=== PATIENT | female | born 1955 | race Caucasian/White ===

== ENCOUNTER 2024-07-12 12:52 | Outpatient (CLI) | payer MEDICARE | END 2024-07-12 12:53 | disposition home or self-care (01) | LOC: BICMRI 12:52 | PROVIDERS: ATTEND Nurse Practitioner Family | DX: M43.04 Spondylolysis, thoracic region (principal); M47.814 Spondylosis without myelopathy or radiculopathy, thoracic region; R60.9 Edema, unspecified | CPT/HCPCS: 72146 ==